=== PATIENT | male | born 1970 | race Caucasian/White ===

== ENCOUNTER → 2020-05-26 11:31 | Outpatient (CLI) | payer OTHER, SELFPAY ==
[2020-05-26 14:42] LABS: Influenza Control Positive
[2020-05-26 22:34] LABS: SARS-CoV-2 RNA PCR Negative
== END ==
PROVIDERS: PCP Family Medicine; Visit Provider Family Medicine
DX: Z20.822 Contact with and (suspected) exposure to COVID-19 (principal); R05 Cough
CPT/HCPCS: 87804; C9803; U0003; U0005

== ENCOUNTER 2021-08-03 10:23 | Emergency (ER) | payer OTHER, SELFPAY ==
[2021-08-03] VITALS (13 sets, daily range): BP systolic 126; BP diastolic 98; PULSE 74–90; RESP 8–21; TEMP 36.7; O2SAT 96–100
--- NOTE | ~2021-08-03 | CT_ITS ---
EXAMINATION: CTA chest PE protocol DATE: 08/03/2021 12:48 INDICATION: Shortness of breath. TECHNIQUE: Computed tomography angiography (CTA) of the chest was performed with 100 mL Omnipaque-350 intravenous contrast timed to evaluate the pulmonary arteries. Coronal maximum intensity projection 3D-reconstructions were created by the technologist. Automated exposure control and iterative reconst ruction technique were employed. The dose-length product was 1093.41 mGy-cm. COMPARISON: None. FINDINGS: There is no pneumonia or pleural effusion. The heart size is normal. No pericardial effusio n. There is no pulmonary embolus. There is mild thoracic spondylosis. IMPRESSION: 1. No pulmonary embolus. Reviewed, dictated and finalized at location B. IMPRESSION: 1. No pulmonary embolus.
--- NOTE | ~2021-08-03 | XR_ITS ---
EXAMINATION: XR chest 1V portable DATE: 08/03/2021 11:05 INDICATION: Shortness of breath. TECHNIQUE: A single frontal view of the chest was obtained. COMPARISON: Chest 2 views 07/01/2010 FINDINGS: The chest demonstrates clear lungs without pneumonia, pleural effusion, or pneumothorax. Th e heart size is normal. IMPRESSION: 1. No acute cardiopulmonary disease. Reviewed, dictated and finalized at location B.
--- NOTE | 2021-08-03 10:54 | ED.GENADULT ---
HPI - General Adult General Chief complaint: Shortness of Breath/Dyspnea Stated complaint: cough for 2 weeks Time Seen by Provider: 08/03/21 10:53 Related Data Home Medications Medication Instructions Recorded Confirmed ibuprofen 200 mg capsule 200 mg PO .prn PRN cap 12/29/19 12/29/19 escitalopram oxalate 20 mg PO DAILY 08/03/21 Allergies Allergy/AdvReac Type Severity Reaction Status Date / Time No Known Allergies Allergy Verified 08/03/21 10:50 [facility] Past Medical History Medical History (Updated 08/03/21 @ 12:54 by Reg Lomeli MD) Anxiety Depression Hypertension Surgical History Surgical History Fracture of mandible, jaw angle [id number] mandible 1989 Family History Family History Father Hypertension Family history of alcoholism Mother Family history of malignant neoplasm of breast Family history of thyroid disease Family history of malignant neoplasm of breast in first degree relative Hypertension Grandparent Family history of alcoholism Social History Social History Smoking status: Never smoker Second hand tobacco smoke exposure: No Alcohol intake: never Drinks per week: 0 Alcohol use details: beer Substance use: never Substance use type: does not use 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 Gender identity (if verbalized by the patient): Male Sexual Orientation (if Verbalized by the Patient): Straight or Heterosexual Spiritual care concerns: No Agree to blood products: Yes Course Vital Signs Vital signs: Vital Signs Temperature 36.7 C 08/03/21 10:45 Pulse Rate 77 08/03/21 10:45 Respiratory Rate 08/03/21 10:45 Blood Pressure 126/98 H 08/03/21 10:45 Pulse Oximetry 97 08/03/21 10:45 Temperature 36.7 C 08/03/21 10:45 Pulse Rate 77 08/03/21 10:45 Respiratory Rate 20 08/03/21 10:45 Blood Pressure 126/98 H 08/03/21 10:45 Pulse Oximetry 97 08/03/21 10:45 Medical Decision Making Vital Signs Vital Signs: Vital Signs Temperature 36.7 C 08/03/21 10:45 Pulse Rate 77 08/03/21 10:45 Respiratory Rate 20 08/03/21 10:45 Blood Pressure 126/98 H 08/03/21 10:45 Pulse Oximetry 97 08/03/21 10:45 Temperature 36.7 C 08/03/21 10:45 Pulse Rate 77 08/03/21 10:45 Respiratory Rate 20 08/03/21 10:45 Blood Pressure 126/98 H 08/03/21 10:45 Pulse Oximetry 97 08/03/21 10:45 Imaging Data My impression: Impressions Chest X-Ray 08/03/21 11:07 IMPRESSION: 1. No acute cardiopulmonary disease. Chest CTA 08/03/21 12:48 IMPRESSION: 1. No pulmonary embolus. Impressions Chest X-Ray 08/03/21 11:07 IMPRESSION: 1. No acute cardiopulmonary disease. Radiologist's impression: Impressions Chest X-Ray 08/03/21 11:07 IMPRESSION: 1. No acute cardiopulmonary disease. Discharge Plan Discharge Clinical Impression: Cough Reactive airway disease Qualifiers: Asthma severity: unspecified severity Asthma persistence: unspecified Asthma complication type: with acute exacerbation Qualified Code(s): J45.901 - Unspecified asthma with (acute) exacerbation Patient Disposition: Home, Self-Care Condition: Stable Instructions: Antibiotic Form, Reactive Airways Disease (ED), Acute Cough (ED) Additional Instructions: Return if symptoms are worsening , call your family physician for appointment, take Tylenol as as needed for aches and pain, continue home medications. Prescriptions: New prednisone 10 mg tablet 20 mg PO DAILY Qty: 10 RF: 0 benzonatate 200 mg capsule 200 mg PO BID PRN (Reason: cough) Qty: 20 RF: 0 levofloxacin 750 mg tablet 750 mg PO DAILY 7 Days Qty: 7 RF: 0 ipratropium bromide 42 mcg (0.06 %) spray,non-aerosol
--- NOTE | 2021-08-03 10:55 | ECG_ITS ---
Measurements Intervals [place] Rate: 76 P: 10 ID: 185 QRS: 5 QRSD: 89 T: 11 QT: 374 QTc: 422 Interpretive Statements SINUS RHYTHM DIFFUSE ST ELEVATION CONSIDER REPOLARIZATION ABNORMALITY, PERICARDITIS, OR MYOCARDIAL INJURY ABNORMAL ECG NO PREVIOUS ECG AVAILABLE FOR COMPARISON Electronically Signed On 08-03-2021 18:05:11 CDT by Rory Sawyer M.D.
[2021-08-03 11:17] LABS: Basophils Absolute Auto 0.1 K/mm3 (0.0-0.1); Basophils Percent Auto 0.7 % (0.2-1.2); Eosinophils Absolute Auto 0.2 K/mm3 (0-0.3); Eosinophils Percent Auto 3.3 % (0-4.4); Hematocrit 44.2 % (42.0-52.0); Hemoglobin 15.3 g/dL (14.0-18.0); Immature Granulocyte Absolute 0.03 K/mm3 (0.00-0.031); Immature Granulocyte Percent A 0.4 % (0-0.5); Lymphocytes Absolute Auto 1.22 K/mm3 (0.9-3.2); Lymphocytes Percent Auto 18.3 % (18.3-44.2); Mean Corpuscular HGB Conc 34.6 g/dl (32-36); Mean Corpuscular Hemoglobin 30.2 pg (26-34); Mean Corpuscular Volume 87.2 fl (80-100); Mean Platelet Volume 10.1 fl (7.4-10.4); Monocytes Absolute Auto 0.8 K/mm3 (0.1-0.6); Monocytes Percent Auto 12.1 % (2.6-8.5); Neutrophils Absolute Auto 4.3 K/mm3 (1.3-6.7); Neutrophils Percent Auto 65.2 % (45.5-73.1); Platelet Count Result 226 k/mm3 (150-375); Red Blood Count 5.07 M/mm3 (4.6-6.20); Red Cell Distribution Width 13.2 % (11.5-14.5); White Blood Count 6.7 K/mm3 (4.5-10.0)
[2021-08-03 11:27] LABS: Alanine Aminotransferase 28 U/L (4-50); Albumin Level 4.5 g/dL (3.5-5.1); Alkaline Phosphatase 62 U/L (38-126); Anion Gap 9 mmol/L (8-16); Aspartate Amino Transferase 33 U/L (17-59); Bilirubin,Total 0.4 mg/dL (0.2-1.3); Blood Urea Nitrogen 9 mg/dL (9-20); Calcium 8.4 mg/dL (8.4-10.2); Carbon Dioxide 24 mmol/L (22-30); Chloride 106 mmol/L (98-107); Estimated CRCL calculation 150 ml/min; Estimated Glomerular Filt Rate > 60; Glucose 107 mg/dL (65-110); Magnesium 2.2 mg/dL (1.6-2.3); Potassium 4.3 mmol/L (3.4-5.0); Sodium 139 mmol/L (137-145)
[2021-08-03 11:29] LABS: Partial Thromboplastin Time 30.2 SECONDS (22.3-36.8)
[2021-08-03 11:30] LABS: INR 1.1; Prothrombin Time 14.1 Seconds (11.1-14.7)
[2021-08-03 11:32] LABS: D Dimer 0.61 ug/mL (<0.48)
[2021-08-03 11:38] LABS: NT Pro B Type Natriuretic Pept 44 pg/mL (5-100); Troponin I < 0.012 ng/mL (0.000-0.034)
[2021-08-03 12:27] LABS: Influenza A QL RT-PCR Negative (Negative); Influenza B QL RT-PCR Negative (Negative); SARS-CoV-2 RNA PCR Negative
== END 2021-08-03 13:30 | disposition home or self-care (01) ==
PROVIDERS: Emergency Provider Emergency Medicine; PCP Hospitalist
DX: J45.901 Unspecified asthma with (acute) exacerbation (principal); R05.9 Cough, unspecified; Z20.822 Contact with and (suspected) exposure to COVID-19; I10 Essential (primary) hypertension; F41.9 Anxiety disorder, unspecified; F32.A Depression, unspecified; R94.31 Abnormal electrocardiogram [ECG] [EKG]
CPT/HCPCS: 36415; 71045; 71275; 80053; 83735; 83880; 84484; 85025; 85380; 85610; 85730; 87502; 93005; 99284; C9803; Q9967; U0003; U0005

== ENCOUNTER 2021-11-23 17:08 | Emergency (ER) | payer OTHER, SELFPAY ==
--- NOTE | 2021-11-23 17:10 | ED.NECK ---
HPI - Neck Pain/Injury General Chief Complaint: Neck Pain/Injury Stated Complaint: neck pain Time Seen by Provider: 11/23/21 17:10 Source: patient Mode of arrival: ambulatory Limitations: no limitations History of Present Illness HPI Narrative: Mr. Curz is a 51 year old male patient presenting to the clinic today with c/o right sided neck pain/shoulder pain x8?9 days. He reports he thinks he slept on his neck wrong. Has seen the chiropractor for adjustments but has not had much relief. Reports some numbness and tingling to the right upper arm and to the right thumb. Denies any known neck injury. Related Data Home Medications Medication Instructions Recorded Confirmed bupropion HCl (smoking deter) 150 150 mg PO BID 11/23/21 11/23/21 mg tablet,12 hr sustained-release(smoking deterrent) Allergies Allergy/AdvReac Type Severity Reaction Status Date / Time No Known Allergies Allergy Verified 11/23/21 17:25 Review of Systems Review of Systems: Pertinent positives per HPI. Patient denies any fever, chills, rash, headache, visual changes, dizziness, cough, runny nose, sore throat, shortness of breath, chest pain, palpitations, nausea, vomiting, diarrhea, constipation, abdominal pain, or any urinary issues. [facility] Past Medical History Medical History Anxiety Depression Hypertension Surgical History Surgical History Fracture of mandible, jaw angle [id number] mandible 1989 Family History Family History Father Hypertension Family history of alcoholism Mother Family history of malignant neoplasm of breast Family history of thyroid disease Family history of malignant neoplasm of breast in first degree relative Hypertension Grandparent Family history of alcoholism Social History Social History Smoking status: Never smoker Second hand tobacco smoke exposure: No Alcohol intake: never Drinks per week: 0 Alcohol use details: beer Substance use: never Substance use type: does not use 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 There is no relevant family history pertinent to the patient complaint. Exam Narrative: General: Well-developed, obese, in no apparent distress Head: Normocephalic, atraumatic. Cardio: Regular rate and rhythm, s1 and s2 normal, no murmur appreciated. Resp: Clear to auscultation bilaterally, no rhonchi, rales, wheezing or rubs. Musculoskeletal: No deformity, tender to palpation over the base of the posterior neck and cervical portion of the trapezius musculature, pain with rotation against resistance to the right side as well as flexion of the neck, grossly normal range of motion, reports numbness to the anterior right upper arm and over the right thumb, muscle strength strong and equal, peripheral pulse strong, no edema, no cyanosis, normal gait and station Course Course Emergency Course: Portions of this record may have been created with voice recognition software. Level of Care: Express Care Visit Vital Signs Vital signs: Vital signs reviewed MDM - Neck Pain/Injury MDM Narrative Medical decision making narrative: At the time of visit patient is resting comfortably on the exam table. I suspect the patient has a strained cervical trapezius muscle to the right side as well as some radicular pain from swelling/inflammation of this muscle pushing on the nerve. I wi
[2021-11-23 17:17] VITALS: BP 133/88; PULSE 88; RESP 18; TEMP 36.3; O2SAT 99
== END 2021-11-23 17:33 | disposition home or self-care (01) ==
PROVIDERS: Emergency Provider Nurse Practitioner Family; PCP Hospitalist
DX: S16.1XXA Strain of muscle, fascia and tendon at neck level, initial encounter (principal); X58.XXXA Exposure to other specified factors, initial encounter; F41.9 Anxiety disorder, unspecified; F32.A Depression, unspecified; I10 Essential (primary) hypertension
CPT/HCPCS: 99213; G0463

== ENCOUNTER 2024-05-21 16:00 | Emergency (ER) | payer OTHER, SELFPAY ==
--- OUTSIDE RECORDS SUMMARY | 2024-05-21 16:11 | XMS_ITS | Clinical Summary ---
Author Organization [facility] Address [address] Attn: Epic Prelude ADT [place] [address] Care Team Providers Care Hereditary Cancer Program Coordinator Name Role Phone Unavailable Primary Care Provider Unavailabl e Medications buPROPion HCL (WELLBUTRIN XL) 150 mg Extended Release 24 hour tablet Take 1 Tablet (150 mg) by mouth 2 times daily. 180 Tablet 10/26/2021 3:40 PM CDT 2 Active LORazepam (ATIVAN) 0.5 mg tablet Take 1 Tablet (0.5 mg) by mouth 1 time daily as needed for anxiety. 30 Tablet 10/29/2021 1:17 PM CDT 2 Active tirzepatide (Mounjaro) 7.5 mg/0.5 mL Pen Injector Inject 0.5 mL (7.5 mg) by subcutaneous injection every 7 days. 2 mL 5 Active Encounters Date Type Department Care Team Description 04/29/2024 External Device Data [facility] ABSTRACTION Provider, Abstract from Last 3 Months Social History Tobacco Use Types Packs/Day Years Used Date Smoking Tobacco: Never Assessed Sex and Gender Information Value Date Recorded Sex Assigned at Not on file Legal Sex Male 3:27 PM CDT Gender Identity Not on file Sexual Orientation Not on file Plan of Treatment Health Maintenance Due Date Last Done Comments DTAP/TDAP/TD VACCINES (1 - Tdap) 1991 HEPATITIS B VACCINES (1 of 3 - 19+ 3-dose series) 1991 COLORECTAL SCREENING 2017 Colorectal Cancer Screening 2017 FIT-DNA Q 3 years 2017 FIT/FOBT Q 1 year 2017 Flex Sig/CT Colonography Q 5 years 2017 ZOSTER VACCINE (1 of 2) 2022 INFLUENZA VACCINE (#1) 2023 PNEUMOCOCCAL VACCINE 0-64 YEARS Aged Out No longer eligible based on patient's age to complete this topic Insurance RX [employer]
--- OUTSIDE RECORDS SUMMARY | 2024-05-21 16:11 | XMS_ITS | Clinical Summary ---
Author Organization [facility] Address [address] [place] [address] Care Team Providers Care Stockroom Inventory Clerk Name Role Phone Serene Ward MD, Dilan Edwards Primary Care Provider Source Comments [facility],non-owned Affiliates and Associated Physician Practices is amultiple site organization consisting of ambulatory clinics and hospital sitesin [place], [place], [place] and [place]. This disclosure is being madepursuant to the Care Everywhere program and may not contain all information available regarding this patient. Last updated 18.[facility] Allergies No known active allergies Medications * Be aware that medications may not be up to date on this document. Alwaysverify current medications with the patient. Medication Sig Dispensed Refills Start Date End Date Status buPROPion XL 24hr (Wellbutrin-XL) 300 MG tablet Take 1 (one) tablet by mouth every morning 02/21/2023 Active ibuprofen (Motrin) 200 MG tablet Take by mouth every 6 hours as needed Active diclofenac sodium (Voltaren) 1 % gel Apply to affected area 4 times daily Active celecoxib (CeleBREX) 200 MG capsuleIndications:Mirtha calderón osteoarthritis of both knees Take 1 (one) capsule by mouth 2 times daily 60 capsule 5 05/15/2023 Active Active Problems Problem Noted Date Diagnosed Date Primary osteoarthritis of both knees 05/16/2023 Social History Tobacco Use Types Packs/Day Years Used Date Smoking Tobacco: Never Smokeless Tobacco: Never Tobacco Cessation:Counseling Given: Not Answered PHQ-2 Answer Date Recorded Patient Health Questionnaire-2 Score 0 05/15/2023 Sex and Gender Information Value Date Recorded Sex Assigned at Not on file Gender Identity Not on file Sexual Orientation Not on file Last Filed Vital Signs Vital Sign Reading Time Taken Comments Blood Pressure - - Pulse - - Temperature - - Respiratory Rate - - Oxygen Saturation - - Inhaled Oxygen Concentration - - Weight 156.5 kg (345 lb) 05/15/2023 1:30 PM ONION TIER Height 182.9 cm (6') 05/15/2023 1:30 PM ONION TIER Body Mass Index 46.79 05/15/2023 1:30 PM ONION TIER Plan of Treatment Health Maintenance Due Date Last Done Comments COLOGUARD (AGES 45-75) - COL ON CA SCREENING 1972 COLON MONITORING 1972 COLONOSCOPY - COLON CA SCREENING 1972 CT COLONOGRAPHY - COLON CA SCREENING 1972 Colorectal Cancer Screening 1972 FIT - COLON CA SCREENING 1972 FLEX SIG - COLON CA SCREENING 1972 LIPID TESTING 1972 MAMMOGRAM 1972 PAP SMEAR 1972 HIV SCREENING 1987 HEPATITIS C SCREENING 02/25/1990 DTAP/TDAP/TD VACCINES (1 - Tdap) 1991 HEPATITIS B VACCINE (1 of 3 - 19+ 3-dose series) 1991 PNEUMOCOCCAL VACCINE 50+ (1 of 1 - PCV) 2022 ZOSTER VACCINE (1 of 2) 2022 SCREENING FOR DIABETES 05/15/2023 COVID-19 VACCINE (1 - 2023-2 5 season) 2023 INFLUENZA VACCINE (#1) 2023 3, 02/09/2022, 01/19/2021 DEPRESSION SCREENING 04/16/2024 05/15/2023 HIB VACCINE Aged Out No longer eligi ble based on patient's age to complete this topic HPV VACCINE Aged Out No longer eligi ble based on patient's age to complete this topic MENINGOCOCCAL (Group B) VACCINE Aged Out No longer eligible b ased on patient's age to complete this topic MENINGOCOCCAL VACCINE Aged Out No orin purvi eligible based on patient's age to complete this topic PNEUMOCOCCAL VACCINE Aged Out No long er eligible based on patient's age to complete this topic Care Teams Stockroom Inventory Clerk Relationship Specialty Start Date End Date Dilan Cast Jr., MD [address] [place] [id number] PCP - General Internal Medicine 05/15/23
--- OUTSIDE RECORDS SUMMARY | 2024-05-21 16:11 | XMS_ITS | Encounter Summary ---
Author Organization [facility] Address [address] [place] [address] Care Team Providers Care Predatory Animal Exterminator Name Role Phone Serene Ward MD, Dilan Edwards Primary Care Provider Encounter Details Date Type Department Care Team (Late st Contact Info) Description 02/20/2020 Lab Requisition [facility] Derm[facility] Lab [address] [place] [id number] Sabas Rogers MD [address] [place] [address] Social History Tobacco Use Types Packs/Day Years Used Date Smoking Tobacco: Never Assessed Sex and Gender Information Value Date Recorded Sex Assigned at Not on file Gender Identity Not on file Sexual Orientation Not on file documented as of this encounter Plan of Treatment Not on file documented as of this encounter Procedures Procedure Name Priority Date/Time Associated Diagnosis Comments DERMATOPATHOLOGY Routine 02/19/2020 12:0 0 AM FIRE SPRINKLER FITTER documented in this encounter Results * DERMATOPATHOLOGY (02/19/2020 12:00 AM FIRE SPRINKLER FITTER) Case Report Dermatopathology Report Case: [id number] Authorizing Provider: Sabas Rogers MD Collected: 02/19/2020 12:00 AM Ordering Location: [facility] Lab Received: 02/20/2020 06:34 AM Pathologist: Kathya Lakhani MD Specimen: Skin, right post thigh 0 12:33 PM [facility] [facility] DERMATOPATHOLOGY LABORATORY Final Diagnosis Specimen A. SKIN, right post thigh: NEVUS LIPOMATOSUS SUPERFICIALIS (D17.30) 0 12:33 PM [facility] [facility] DERMATOPATHOLOGY LABORATORY Clinical History Nevus vs tag. Path # [id number]. 0 12:33 PM [facility] DERMATOPATHOLOGY [facility]ORATORY Gross Description Specimen A: Received is one formalin filled container labeled with the patient's name and designated right post thigh. The specimen consists of a shave biopsy (2 pieces) measuring [id number], bisected, & [id number]. Jar 0. 0 12:33 PM [facility] DERMATOPATHOLOGY LABORATORY Microscopic Description Specimen A. SKIN, right post thigh: There is a gently folded epidermis surrounding a connective tissue core in which fat and collagen are intermingled. 0 12:33 PM [facility] DERMATOPATHOLOGY LABORATORY Disclaimer An external and internal positive and negative controls are appropriate for the histochemical, immunohistochemical and immunofluorescence stain(s) in this case (if any), except where stated explicitly. The performance characteristics of the stain(s) cited in this report were developed and its performance characteristic determined by the Dermatopathology Laboratory at [facility], directed by Dr. Sariah Wise. These tests need not be, and therefore are not, approved by the [place] Food and Drug Administration. The tests are used for clinical purposes. Billing Codes Specimen Charges Stain Charges 50980 1 0 12:33 PM [facility] DERMATOPATHOLOGY LABORATORY Embedded Images 0 12:33 PM [facility] DERMATOPATHOLOGY LABORATORY Pathology/Cytolog y TISSUE SPECIMEN FROM SKIN / Unknown 02/19/2020 02/20/2020 6:34 AM FIRE SPRINKLER FITTER Sabas Rogers MD LAB - PATHOLOGY/CYTO LOGY ORDERABLES DERMATOPATHOLOGY LABORATORY [facility] - Department of Dermatology [facility] Medicine [address] [place] [address], [address] [phone] documented in this encounter Visit Diagnoses Not on filedocumented in this encounter Care Teams Predatory Animal Exterminator Relationship Specialty Start Date End Date Dilan Cast Jr., MD [address] [place] [id number] PCP - General Internal Medicine 05/15/23 documented as of this encounter
--- OUTSIDE RECORDS SUMMARY | 2024-05-21 16:11 | XMS_ITS | Clinical Summary ---
Author Organization [facility] [address] [place] [address] Care Team Providers Care Certified Registered Dental Assistant Name Role Phone Serene Ward MD, Dilan Swift Primary Care Provide r Allergies No known active allergies Medications diclofenac sodium (VOLTAREN) 1 % gel Apply topically 4 (four) times a day Active celecoxib (CeleBREX) 100 mg capsuleIndication s:Primary osteoarthritis involving multiple joints Take 1 capsule (100 mg total) by mouth 2 (two) times a day 180 capsule 3 08/30/19 24 2024 Active buPROPion XL (WELLBUTRIN XL) 300 mg 24 hr tabletIndications :Generalized anxiety disorder TAKE 1 TABLET EVERY MORNING 90 tablet 3 02/19/20 24 Active atorvastatin (LIPITOR) 40 mg tabletIndications :Type 2 diabetes mellitus with hyperglycemia, without long-term current use of insulin (HCC) Take 1 tablet (40 mg total) by mouth daily 90 tablet 4 03/05/20 24 2024 Active olmesartan (BENICAR) 5 mg tabletIndications :Type 2 diabetes mellitus with hyperglycemia, without long-term current use of insulin (HCC) Take 1 tablet (5 mg total) by mouth daily 90 tablet 3 03/05/20 24 2024 Active Freestyle InsuLinx stripIndications: Type 2 diabetes mellitus with hyperglycemia, without long-term current use of insulin (HCC) Test daily before all meals/snacks and once before bedtime. 3 each 03/05/20 24 Active lancets (freestyle) 28 gauge miscIndications:T ype 2 diabetes mellitus with hyperglycemia, without long-term current use of insulin (HCC) Test daily before all meals/snacks and once before bedtime. 3 each 03/05/20 24 Active blood-glucose meter (Freestyle InsuLinx) miscIndications:T ype 2 diabetes mellitus with hyperglycemia, without long-term current use of insulin (HCC) Test daily before all meals/snacks and once before bedtime. 1 each 03/05/20 24 Active tirzepatide (Mounjaro) 7.5 mg/0.5 mL pen injectorIndicatio ns:Type 2 diabetes mellitus with hyperglycemia, without long-term current use of insulin (HCC) Inject 7.5 mg under the skin every 7 days 2 mL 04/24/19 25 Active tirzepatide (Mounjaro) 5 mg/0.5 mL pen injectorIndicatio ns:Type 2 diabetes mellitus with hyperglycemia, without long-term current use of insulin (HCC) Inject 5 mg under the skin every 7 days 2 mL 03/05/20 24 2024 Discontinued tirzepatide (Mounjaro) 7.5 mg/0.5 mL pen injectorIndicatio ns:Type 2 diabetes mellitus with hyperglycemia, without long-term current use of insulin (HCC) Inject 7.5 mg under the skin every 7 days 2 mL 04/24/19 25 2024 Discontinued(R sarah) Active Problems Problem Noted Date Diagnosed Date Type 2 diabetes mellitus wit h hyperglycemia, without long-term current use of insulin 03/05/2024 Assessment & Plan (03/05/2024 8:57 AM CAR CUSTOMIZER): New dx, will start mounjaro with weight and hgba1c Will start statin and benicar Will get urine test at next visit Preventative health care 02/09/2022 Assessment & Plan (03/05/2024 8:51 AM CAR CUSTOMIZER): Reviewed labs, screenings and vaccines Assessment & Plan (02/21/2023 8:44 AM CAR CUSTOMIZER): Reviewed labs, screenings and vaccines Assessment & Plan (02/09/2022 3:29 PM CDT): Well get labs Up to date on vaccines Will get colonoscopy this year Lymphadenopathy 12/06/2020 Assessment & Plan (12/06/2020 3:32 PM CDT): Suspect from TDAP vaccine Should resolve in the next week Will let us know if it does not improve Generalized anxiety disorder 11/18/2020 Assessment & Plan (03/05/2024 8:44 AM CAR CUSTOMIZER): Chronic stable Well controlled Continue current prescribed medications wellbutrin at current dose Assessment & Plan (02/21/2023 8:43 AM CAR CUSTOMIZER): Chronic stable Well controlled Continue current prescribed medications at current dose Assessment & Plan (08/09/2022 10:22 AM CDT): Chronic stable Well controlled Continue current prescribed medications at current dose Assessment & Plan (02/09/2022 3:28 PM CDT): Continue medications as prescribed. Assessment & Plan (12/05/2020 5:10 PM CDT): For now , cont lexapro but if symptoms worsen with lack of interest, etc, would switch to alternative Assessment & Plan (11/18/2020 10:29 AM CDT): Trial of lexapro and strongly recommend counseling Noom eamon suggested as well Class 3 severe obesity due t o excess calories without serious comorbidity with body mass index (BMI) of 45.0 to 49.9 in adult 11/18/2020 Assessment & Plan (03/05/2024 8:55 AM CAR CUSTOMIZER): Monitor weight, trying to start mounjaro for dm2 Assessment & Plan (08/30/2023 1:52 PM CDT): Monitor weight Assessment & Plan (02/21/2023 8:43 AM CAR CUSTOMIZER): Has lost weight via diet changes Assessment & Plan (08/09/2022 10:21 AM CDT): Monitor weight Assessment & Plan (02/09/2022 3:28 PM CDT): Monitor weight Assessment & Plan (11/18/2020 10:29 AM CDT): 315 is lowest weight hes been in the last few years Discussed welennyvy- something to consider Major depressive disorder Overview (09/16/2021): On lexapro and refractory symptoms, lexapro dc/d 08/2021 and swtiched to wellbutrin Assessment & Plan (08/09/2022 10:22 AM CDT): Chronic stable Well controlled Continue current prescribed medications at current dose Assessment & Plan (12/08/2021 2:32 PM CDT): Doing stable on wellbutrin- changing to 300 mg XL daily Cont with consistent every 2-3 weeks therapy Hold off on psych referral for now Assessment & Plan (09/16/2021 1:56 PM CDT): Cont wellbutrin at 150 mg bid Advise he see psych as he wishes to start ssri with wellbutrin, dt concerns for qtc prolongation and serotonin sydrome with this combo as well as our inability to get control of his symptoms, I highly advise he discuss this combo with a psychiatrist. Contc raj. Assessment & Plan (07/13/2021 1:50 PM CDT): Getting cousneling, 5 sessions So far Cont with counseling Cont with lexapro at 20 mg/da rtc in about 2 months after he has restarted work Assessment & Plan (05/24/2021 1:50 PM CAR CUSTOMIZER): More the issue now, very work related Advise he start with counseling For now would cont lexapro Reasonable ot add on wellbutrin as he suggested if no improvement with counseling Assessment & Plan (01/19/2021 9:09 AM CDT): Improved, but room for improvement per pt- will inc lexapro to 20 mg/da Discussed he is to message if symptoms/side effects worsen or develop rtc 4 mo Assessment & Plan (11/18/2020 10:30 AM CDT): No si/hi Trial of lexapro- he is to notify me at 2 weeks if side effects are minimal, consider inc to 20 mg at that time ED (erectile dysfunction) Assessment & Plan (12/05/2020 5:10 PM CDT): Cont viagra Assessment & Plan (11/18/2020 10:31 AM CDT): Likely mf with depression, anxiety, weight, possibly underlying low t and/or low thyroid. Discussed lexapro could potentially worsen this Discussed viagra and side effects Lower extremity edema Assessment & Plan (11/18/2020 10:35 AM CDT): 2+ pitting No crackles lungs Consider echo if develops sig quesada/orthopnea Resolved Problems Problem Noted Date Diagnosed Date Resolved Date Elevated hemoglobin A1c 12/05/2020 11/2 Assessment & Plan (05/24/2021 1:51 PM CAR CUSTOMIZER): Declines meds again, will work on diet and exercise, weight is down, hopefully ha1c will dec at next f/u He is agreeable to treatment if it worsens Assessment & Plan (01/19/2021 9:11 AM CDT): ha1c dropped 6.6 > 6.1! Neuropathy exam normal today Eye exam soon Discussed glp-1 agonists- something to consider if he wants further assistance with weight loss Cont with diet , advise adding in exercise if possible 6-7 lbs of weight loss since 11/15/2020 just from cutting back on soda! Assessment & Plan (12/05/2020 5:13 PM CDT): New dx Discussed my recommendation to start metformin and/or glp-1 He Is to consider, will work on diet and exercise for now and rtc 3 mo Needs eye appt tamir Will get ha1c and microalbumin prior to next appt Lipids great control 11/2020 HTN (hypertension) 11/18/2020 3 Assessment & Plan (01/19/2021 9:05 AM CDT): Looking great today! Assessment & Plan (12/05/2020 5:09 PM CDT): Cont low salt diet Assessment & Plan (11/18/2020 10:28 AM CDT): Not taking losartan , bp looks great today Advise staying off- 4 bp numbers at different times over the next week, record and send to me at his 2 week message to me Encounters Date Type Department Care Team Description 03/05/2024 8:30 AM CAR CUSTOMIZER Office Visit [facility] [address] [place] [phone] Dilan Cast Jr., MD Preventative health care (Primary Dx); Need for vaccination; Type 2 diabetes mellitus with hyperglycemia, without long-term current use of insulin (HCC); Class 3 severe obesity due to excess calories without serious comorbidity with body mass index (BMI) of 45.0 to 49.9 in adult (HCC); Encounter for screening colonoscopy; Generalized anxiety disorder 03/05/2024 Telephone [facility] [address] [place] [phone] Dilan Cast Jr., MD Prescription Error 03/03/2024 9:33 AM CAR CUSTOMIZER - 03/03/2024 11:59 PM CAR CUSTOMIZER Hospital Encounter [facility] [address] [place] [address] Dilan Laureano MD Chronic left hip pain Discharge Disposition: Discharge to home or self care 02/27/2024 Orders Only 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 from Last 3 Months Immunizations Name Administration Dates Next Due Influenza, Quadrivalent, Spl it, Preservative Free, Intramuscular 02/21/2023,02/09/2022,01/19/2021 Influenza, Trivalent, Preser vative Free, Intramuscular 03/05/2024 Td, Unspecified 11/18/2020(Deferred: Patient Ref used) Tdap 12/02/2020 Surgical History Surgery Date Site/Laterality Comments MANDIBLE FRACTURE SURGERY 10/15/1989 COSMETIC SURGERY maxillofacial , cons idered cosmetic, lower jaw, [place] FLUORO GUIDED INJECTION HIP LEFT 03/03/2024 Left Medical History Medical History Date Comments Anemia Depression Back pain Knee pain, left GERD (gastroesophageal reflux disease) off and o n for a few years Anxiety Hypertension borderline, 2000 Family History Medical History Relation Name Comments Alcohol abuse Father Odilon Cruz Hypertension Father Odilon Cruz Alcohol abuse Maternal Grandmother Reanna Carey Arthritis Maternal Grandmother Reanna Carey Cancer Mother Lila Cruz Cancer Mother's Brother Dilan Aurelio Miscarriages / Stillbirths Sister Kathya Ann arrington Relation Name Status Comments Father Odilon Cruz Alive Maternal Grandmother Reanna Carey Mother Lila Cruz Alive Mother's Brother Dilan Aurelio Sister Kathya Lopez Social History Tobacco Use Types Packs/Day Years Used Date Smoking Tobacco: Never Smokeless Tobacco: Never Tobacco Cessation:Counseling Given: Not Answered AUDIT-C Answer Date Recorded Frequency of Alcohol Consumption Not on file 08/30/2023 Q2: How many drinks containi ng alcohol do you have on a typical day when you are drinking? Patient does not drink Frequency of Binge Drinking Not on file 08/14 PHQ-2 Answer Date Recorded PHQ-2 Total Score (If total score is 3 or more points, staff should administer the PHQ-9) 1 03/05/2024 Sex and Gender Information Value Date Recorded Sex Assigned at Not on file Legal Sex Male 4:26 PM CDT Gender Identity Male 11/15/2020 2:32 PM CDT Sexual Orientation Straight 11/15/2020 2: 32 PM CDT Obstetrics History Last Filed Vital Signs Vital Sign Reading Time Taken Comments Blood Pressure 122/74 03/05/2024 8:28 AM CAR CUSTOMIZER Pulse 83 03/05/2024 8:28 AM CAR CUSTOMIZER Temperature 36.6 C (97.9 F) 03/05/2024 8:28 AM CAR CUSTOMIZER Respiratory Rate 18 03/05/2024 8:28 AM CAR CUSTOMIZER Oxygen Saturation 97% 03/05/2024 8:28 AM CAR CUSTOMIZER Inhaled Oxygen Concentration - - Weight 161.5 kg (356 lb) 03/05/2024 8:28 AM CAR CUSTOMIZER Height 182.9 cm (6') 03/05/2024 8:28 AM CAR CUSTOMIZER Body Mass Index 48.28 03/05/2024 8:28 AM CAR CUSTOMIZER Plan of Treatment Health Maintenance Due Date Last Done Comments Albumin Creatinine Ratio, Urine 1972 Colon Cancer Screening-Colonoscopy 1972 Hepatitis C Screening 1972 Pneumococcal vaccine <65 (1 of 2 - PCV) 1978 Hepatitis B Screening 1990 Dilated Eye Exam 01/24/2022 01/24/2021, 01/24/2021 Zoster Vaccine (1 of 2) 2022 Covid-19 Vaccine (3 - 2023-2 5 season) 2023 06/07/2020, 05/17/2020 Hemoglobin A1C 09/01/2024 03/04/2024, 07/2022, 05/17/2022, Additional history exists Lipid Panel 03/04/2025 03/04/2024, 04/2022, 11/18/2020 eGFR 03/04/2025 03/04/2024, 07/2022, 05/17/2022, Additional history exists Depression Screening 03/05/2025 03/05/2024, 08/30/2023, 02/21/2023, Additional history exists Regular Well Visit/Exam 18-64 03/05/2025, 02/21/2023, 02/09/2022, Additional history exists Prostate Cancer Screening-PSA 03/04/2026 03/04/2024, 02/17/2023 DTaP/Tdap/Td Vaccine (2 - Td or Tdap) 12/02/2030 12/02/2020 Influenza Vaccine Completed 03/05/2024, , 02/09/2022, Additional history exists Foot Exam Discontinued Procedures Procedure Name Priority Date/Time Associated Diagnosis Comments HEMOGLOBIN A1C Routine 03/04/2024 9:01 AM CAR CUSTOMIZER Class 3 severe obesity due to excess calories without serious comorbidity with body mass index (BMI) of 45.0 to 49.9 in adult (HCC) Elevated hemoglobin A1c Preventative health care PSA SCREEN Routine 03/04/2024 9:01 AM CAR CUSTOMIZER Class 3 severe obesity due to excess calories without serious comorbidity with body mass index (BMI) of 45.0 to 49.9 in adult (HCC) Elevated hemoglobin A1c Preventative health care LIPID PANEL Routine 03/04/2024 9:01 AM CAR CUSTOMIZER Class 3 severe obesity due to excess calories without serious comorbidity with body mass index (BMI) of 45.0 to 49.9 in adult (HCC) Elevated hemoglobin A1c Preventative health care CBC WITH AUTO DIFFERENTIAL Routine 03/04/2024 9:01 AM CAR CUSTOMIZER Class 3 severe obesity due to excess calories without serious comorbidity with body mass index (BMI) of 45.0 to 49.9 in adult (HCC) Elevated hemoglobin A1c Preventative health care COMPREHENSIVE METABOLIC PANEL Routine 03/04/2024 9:01 AM CAR CUSTOMIZER Class 3 severe obesity due to excess calories without serious comorbidity with body mass index (BMI) of 45.0 to 49.9 in adult (HCC) Elevated hemoglobin A1c Preventative health care FL FLUORO GUIDED INJECTION HIP LEFT Schedule Routine, Read Routine (OP Routine) 03/03/2024 10:43 AM CAR CUSTOMIZER Chronic left hip pain HM DIABETES EYE EXAM Routine 01/24/2021 from Last 3 Months or Most Recently Relevant to Health Maintenance Results * PSA screen (03/04/2024 9:01 AM CAR CUSTOMIZER) PSA 0.67 < OR = 4.00 ng/mL [facility] Comment: The total PSA value from this assay system is standardized against the WHO standard. The test result will be approximately 20% lower when compared to the equimolar-standardized total PSA ([place]). Comparison of serial PSA results should be interpreted with this fact in mind. This test was performed using the Siemens chemiluminescent method. Values obtained from different assay methods cannot be used interchangeably. PSA levels, regardless of value, should not be interpreted as absolute evidence of the presence or absence of disease. Blood 03/04/2024 9:01 AM CAR CUSTOMIZER 03/04/2024 9:02 AM CAR CUSTOMIZER Narrative [facility] - 03/05/2024 2:51 AM CAR CUSTOMIZER FASTING:YES FASTING: YES Dilan Cast Jr., MD LAB BLOOD ORDERABLES Final Result [facility] [address] [place] [address] * (ABNORMAL) CBC with auto differential (03/04/2024 9:01 AM CAR CUSTOMIZER) Pathologist [facility] WBC 15.3(H) 3.8 - 10.8 Thousand/ uL [facility] RBC, POC 5.40 4.20 - 5.80 Million/u L [facility] Hgb 16.1 13.2 - 17.1 g/dL [facility] Hct 48.8 38.5 - 50.0 % [facility] MCV 90.4 80.0 - 100.0 fL [facility] MCH 29.8 27.0 - 33.0 pg [facility] MCHC 33.0 32.0 - 36.0 g/dL [facility] Comment: For adults, a slight decrease in the calculated MCHC value (in the range of 30 to 32 g/dL) is most likely not clinically significant; however, it should be interpreted with caution in correlation with other red cell parameters and the patient's clinical condition. Rdw 13.1 11.0 - 15.0 % [facility] Platelets 280 140 - 400 Thousand/ uL [facility] MPV 11.1 7.5 - 12.5 fL [facility] Neutrophils, abs 12,776(H) 1,500 - 7,800 cells/uL [facility] Lymphocytes, abs 1,729 850 - 3,900 cells/uL [facility] Monocyte abs 780 200 - 950 cells/uL [facility] Eosinophils, abs 0(L) 15 - 500 cells/uL [facility] Basophils, abs 15 0 - 200 cells/uL [facility] Neutrophils 83.5 % [facility] Lymphocyte pct 11.3 % [facility] Monocytes 5.1 % [facility] Eosinophils 0.0 % [facility] Basophils 0.1 % [facility] Blood 03/04/2024 9:01 AM CAR CUSTOMIZER 03/04/2024 9:02 AM CAR CUSTOMIZER Narrative [facility] - 03/05/2024 2:51 AM CAR CUSTOMIZER FASTING:YES FASTING: YES Dilan Cast Jr., MD LAB BLOOD ORDERABLES Final Result [facility] [address] [place] [address] * (ABNORMAL) Hemoglobin A1c (03/04/2024 9:01 AM CAR CUSTOMIZER) Hgb A1C 6.6(H) <5.7 % of total Hgb [facility] Comment: For someone without known diabetes, a hemoglobin A1c value of 6.5% or greater indicates that they may have diabetes and this should be confirmed with a follow-up test. For someone with known diabetes, a value <7% indicates that their diabetes is well controlled and a value greater than or equal to 7% indicates suboptimal control. A1c targets should be individualized based on duration of diabetes, age, comorbid conditions, and other considerations. Currently, no consensus exists regarding use of hemoglobin A1c for diagnosis of diabetes for children. Blood 03/04/2024 9:01 AM CAR CUSTOMIZER 03/04/2024 9:02 AM CAR CUSTOMIZER Narrative [facility] - 03/05/2024 2:51 AM CAR CUSTOMIZER FASTING:YES FASTING: YES Dilan Cast Jr., MD LAB BLOOD ORDERABLES Final Result [facility] [address] [place] [address] * Lipid panel (03/04/2024 9:01 AM CAR CUSTOMIZER) Pathologist [facility] Cholesterol 156 <200 mg/dL [facility] HDL 44 > OR = 40 mg/dL [facility] Triglycerides 89 <150 mg/dL [facility] LDL 94 mg/dL (calc) [facility] Comment: Reference range: <100 Desirable range <100 mg/dL for primary prevention; <70 mg/dL for patients with CHD or diabetic patients with > or = 2 CHD risk factors. LDL-C is now calculated using the Chalo-Owusu calculation, which is a validated novel method providing better accuracy than the Friedewald equation in the estimation of LDL-C. Chalo SS et al. TITUS. 2013;310(19): 0321-2044 (http://education.CoPatient.olook/faq/CPH882) Chol/HDL ratio 3.5 <5.0 (calc) [facility] Non-HDL, (LDL+VLDL) 112 <130 mg/dL (calc) [facility] Comment: For patients with diabetes plus 1 major ASCVD risk factor, treating to a non-HDL-C goal of <100 mg/dL (LDL-C of <70 mg/dL) is considered a therapeutic option. Blood 03/04/2024 9:01 AM CAR CUSTOMIZER 03/04/2024 9:02 AM CAR CUSTOMIZER Narrative [facility] - 03/05/2024 2:51 AM CAR CUSTOMIZER FASTING:YES FASTING: YES Dilan Cast Jr., MD LAB BLOOD ORDERABLES Final Result [facility] [address] [place] [phone] * (ABNORMAL) Comprehensive metabolic panel (03/04/2024 9:01 AM CAR CUSTOMIZER) Glucose 134(H) 65 - 99 mg/dL [facility] Comment: Fasting reference interval For someone without known diabetes, a glucose value >125 mg/dL indicates that they may have diabetes and this should be confirmed with a follow-up test. BUN 11 7 - 25 mg/dL [facility] Creatinine 0.97 0.70 - 1.30 mg/dL [facility] eGFR 94 > OR = 60 mL/min/1.7 3m2 [facility] BUN/creat ratio SEE NOTE: 6 - 22 (calc) [facility] Comment: Not Reported: BUN and Creatinine are within reference range. Sodium 135 135 - 146 mmol/L [facility] Potassium, pl 4.3 3.5 - 5.3 mmol/L [facility] Chloride 105 98 - 110 mmol/L [facility] CO2 21 20 - 32 mmol/L [facility] Calcium 9.3 8.6 - 10.3 mg/dL [facility] Protein, sr 7.8 6.1 - 8.1 g/dL [facility] Albumin 4.5 3.6 - 5.1 g/dL [facility] GLOBULIN 3.3 1.9 - 3.7 g/dL (calc) [facility] Alb/glob ratio 1.4 1.0 - 2.5 (calc) [facility] Bilirubin, total 0.5 0.2 - 1.2 mg/dL [facility] Alk phos 49 35 - 144 U/L [facility] AST 14 10 - 35 U/L [facility] ALT (SGPT) 20 9 - 46 U/L [facility] Blood 03/04/2024 9:01 AM CAR CUSTOMIZER 03/04/2024 9:02 AM CAR CUSTOMIZER Narrative [facility] - 03/05/2024 2:51 AM CAR CUSTOMIZER FASTING:YES FASTING: YES Dilan Cast Jr., MD LAB BLOOD ORDERABLES Final Result [facility] [address] [place] [phone] * FL Fluoro Guided Injection Hip Left (03/03/2024 10:43 AM CAR CUSTOMIZER) Anatomical Region Laterality Modality Hip Left Computed Radiogr aphy, Computed Radiography 03/03/2024 10:5 9 AM CAR CUSTOMIZER Narrative 03/03/2024 11:00 AM CAR CUSTOMIZER EXAM DESCRIPTION: FL FLUORO GUIDED INJECTION HIP LEFT REASON FOR STUDY: pain Pt states hip pain for 6 months COMPARISON: Left hip radiographs 08/30/2023 RADIATION DOSE: Dose: 158.44 uGym2 Dose Area Product (DAP) PROCEDURE: Risk, benefits, and alternatives of the procedure were explained to the patient and informed consent was obtained. The area was prepped and draped in the usual sterile fashion. Local anesthesia was provided by 0.25 percent bupivacaine. A 22 gauge spinal needle was directed into the left hip joint space under fluoroscopic guidance, and a small amount of air was injected to confirm intra-articular placement. 40 mg triamcinolone and 2 mL 0.25% bupivacaine were injected without complication. IMPRESSION: Successful left hip steroid injection. THIS IS AN ELECTRONICALLY VERIFIED FINAL REPORT 03/03/2024 11:00 AM - Electronically signed by Brant Quinonez M.D. JR: Report ID: [id number] Reading Location: [id number] Procedure Note Brant Quinonez MD - 03/03/2024 EXAM DESCRIPTION: FL FLUORO GUIDED INJECTION HIP LEFT REASON FOR STUDY: pain Pt states hip pain for 6 months COMPARISON: Left hip radiographs 08/30/2023 RADIATION DOSE: Dose: 158.44 uGym2 Dose Area Product (DAP) PROCEDURE: Risk, benefits, and alternatives of the procedure wereexplained to the patient and informed consent was obtained. The area was prepped and draped in the usual sterile fashion. Local anesthesia was provided by 0.25 percent bupivacaine. A 22 gauge spinal needle was directed into the lefthip joint space under fluoroscopic guidance, and a small amount of air was injected to confirm intra-articular placement. 40 mg triamcinolone and2 mL 0.25% bupivacaine were injected without complication. IMPRESSION: Successful left hip steroid injection. THIS IS AN ELECTRONICALLY VERIFIED FINAL REPORT 03/03/2024 11:00 AM - Electronically signed by Brant Quinonez M.D. JR: Report ID: [id number] Reading Location: [place] [address] Dilan Laureano MD IMG FLUOROSCOPY PROCEDU RES Final Result * DIABETES EYE EXAM (01/24/2021) SCRIBED DIABETIC DILATED EYE EXAM Normal Historical Provider HEALTH MAINTENANCE Final Result from Last 3 Months or Most Recently Relevant to Health Maintenance Insurance [employer] OPEN ACCESS [employer] Care Teams Certified Registered Dental Assistant Relationship Specialty Start Date End Date Dilan Cast Jr., MD [address] [place] [phone] PCP - General Internal Medicine 02/09/22
--- OUTSIDE RECORDS SUMMARY | 2024-05-21 16:11 | XMS_ITS | Patient Health Summary ---
Author Organization [facility] reQall Address [address] [place] [address] Care Team Providers Care Digital Strategy Director Name Role Phone Serene Ward MD, Dilan Edwards Primary Care Provider Note from [facility],non-owned Affiliates and Associated Physician Practices is amultiple site organization consisting of ambulatory clinics and hospital sitesin [place], [place], [place] and [place]. This disclosure is being madepursuant to the Care Everywhere program and may not contain all information available regarding this patient. Last updated 18.[facility] reQall Allergies No known active allergies Medications * Be aware that medications may not be up to date on this document. Alwaysverify current medications with the patient. * buPROPion XL 24hr (Wellbutrin-XL) 300 MG tablet(Started 02/21/2023) Take 1 (one) tablet by mouth every morning * ibuprofen (Motrin) 200 MG tablet Take by mouth every 6 hours as needed * diclofenac sodium (Voltaren) 1 % gel Apply to affected area 4 times daily * celecoxib (CeleBREX) 200 MG capsule(Started 05/15/2023) Take 1 (one) capsule by mouth 2 times daily 5 refills by 05/14/2024 Active Problems Problem Noted Date Diagnosed Date [...] 156.5 kg (345 lb) 05/15/2023 1:30 PM SENIOR CARE MANAGER Height 182.9 cm (6') 05/15/2023 1:30 PM SENIOR CARE MANAGER Body Mass Index 46.79 05/15/2023 1:30 PM SENIOR CARE MANAGER Procedures * XR KNEE BILAT 3VW(Performed 05/15/2023) Performed for Pain in both knees, unspecified chronicity * DERMATOPATHOLOGY(Performed 02/19/2020) Results * XR KNEE BILAT 3VW (05/15/2023 1:35 PM SENIOR CARE MANAGER) Narrative [facility] [address] - 05/15/2023 1:35 PM SENIOR CARE MANAGER Please see progress note in Epic for results. Shan Zavala MD DIAGNOSTIC IMAGING O RDERABLES [facility] [address] * DERMATOPATHOLOGY (02/19/2020 12:00 AM SENIOR CARE MANAGER) Case Report Dermatopathology Report Case: [id number] Authorizing Provider: Sabas Rogers MD Collected: 02/19/2020 12:00 AM Ordering Location: [facility] Lab Received: 02/20/2020 06:34 AM Pathologist: Kathya Lakhani MD Specimen: Skin, right post thigh 0 12:33 PM SENIOR CARE MANAGER DERMATOPATHOLOGY LABORATORY Final Diagnosis Specimen A. SKIN, right post thigh: NEVUS LIPOMATOSUS SUPERFICIALIS (D17.30) 0 12:33 PM SENIOR CARE MANAGER DERMATOPATHOLOGY LABORATORY Clinical History Nevus vs tag. Path # [id number]. 0 12:33 PM SENIOR CARE MANAGER DERMATOPATHOLOGY LABORATORY Gross Description Specimen A: Received is one formalin filled container labeled with the patient's name and designated right post thigh. The specimen consists of a shave biopsy (2 pieces) measuring [id number], bisected, & [id number]. Jar 0. 0 12:33 PM SENIOR CARE MANAGER DERMATOPATHOLOGY LABORATORY Microscopic Description Specimen A. SKIN, right post thigh: There is a gently folded epidermis surrounding a connective tissue core in which fat and collagen are intermingled. 0 12:33 PM [facility] DERMATOPATHOLOGY LABORATORY Disclaimer An external and internal positive and negative controls are appropriate for the histochemical, immunohistochemical and immunofluorescence stain(s) in this case (if any), except where stated explicitly. The performance characteristics of the stain(s) cited in this report were developed and its performance characteristic determined by the Dermatopathology Laboratory at [facility], directed by Dr. Sariah Wise. These tests need not be, and therefore are not, approved by the [place] Food and Drug Administration. The tests are used for clinical purposes. Billing Codes Specimen Charges Stain Charges 16197 1 0 12:33 PM SENIOR CARE MANAGER DERMATOPATHOLOGY LABORATORY Embedded Images 0 12:33 PM SENIOR CARE MANAGER DERMATOPATHOLOGY LABORATORY Pathology/Cytolog y TISSUE SPECIMEN FROM SKIN / Unknown 02/19/2020 02/20/2020 6:34 AM SENIOR CARE MANAGER Sabas Rogers MD LAB - PATHOLOGY/CYTO LOGY ORDER[facility]LES DERMATOPATHOLOGY LABORATORY [facility] Department of Dermatology [facility] [address] [place] [address], [address] [phone] Care Teams Digital Strategy Director Relationship Specialty Start Date End Date Dilan Cast Jr., MD [address] [place] [id number] PCP - General Internal Medicine 05/15/23
--- OUTSIDE RECORDS SUMMARY | 2024-05-21 16:11 | XMS_ITS | Referral Summary ---
Author Organization [facility] Address [address] [facility] [place] [address] Care Team Providers Care Hand Almond Blancher Name Role Phone Serene Ward MD, Dilan Edwards Primary Care Provider Source Comments [facility],non-owned Affiliates and Associated Physician Practices is amultiple site organization consisting of ambulatory clinics and hospital sitesin [place], [place], [place] and [place]. This disclosure is being madepursuant to the Care Everywhere program and may not contain all information available regarding this patient. Last updated 18.[facility] Allergies No known active allergies Medications * [...] 156.5 kg (345 lb) 05/15/2023 1:30 PM FIREBOAT OPERATOR Height 182.9 cm (6') 05/15/2023 1:30 PM FIREBOAT OPERATOR Body Mass Index 46.79 05/15/2023 1:30 PM FIREBOAT OPERATOR Plan of Treatment Not on file Care Teams Hand Almond Blancher Relationship Specialty Start Date End Date Dilan Cast Jr., MD [address] [place] [phone] PCP - General Internal Medicine 05/15/23
--- OUTSIDE RECORDS SUMMARY | 2024-05-21 16:11 | XMS_ITS | Referral Summary ---
Author Organization [facility] [address] [place] [phone] Care Team Providers Care Geospatial Program Management Officer Name Role Phone Serene Ward MD, Dilan Swift Primary Care Provide r Encounters Date Type Department Care Team Description 03/05/2024 Telephone [facility] [address] [place] [phone] Dilan Cast Jr., MD Prescription Error 03/05/2024 8:30 AM ADVERTISING SALES ASSISTANT Office Visit [facility] [address] [place] [phone] Dilan Cast Jr., MD Preventative health care (Primary Dx); Need for vaccination; Type 2 diabetes mellitus with hyperglycemia, without long-term current use of insulin (HCC); Class 3 severe obesity due to excess calories without serious comorbidity with body mass index (BMI) of 45.0 to 49.9 in adult (HCC); Encounter for screening colonoscopy; Generalized anxiety disorder 03/03/2024 9:33 AM ADVERTISING SALES ASSISTANT - 03/03/2024 11:59 PM ADVERTISING SALES ASSISTANT Hospital Encounter [facility] [address] [place] [address] Dilan Laureano MD Chronic left hip pain Discharge Disposition: Discharge to home or self care 02/27/2024 Orders Only [facility] [address] [place] [phone] Dilan Laureano MD Chronic left hip pain (Primary Dx) 02/26/2024 Telephone [facility] [facility] [address] [place] [phone] Dilan Laureano MD 02/20/2024 10:00 AM ADVERTISING SALES ASSISTANT Office Visit [facility] [address] [facility] [address] [place] [phone] Dilan Laureano MD Left hip pain (Primary Dx); Chronic left hip pain; 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 3 each 03/05/20 24 Active blood-glucose meter ([employer]) miscIndications:T ype 2 diabetes mellitus with hyperglycemia, without long-term current use of insulin ([facility]) Test daily before all meals/snacks and once [...] 03/05/2024 Assessment & Plan (03/05/2024 8:57 AM ADVERTISING SALES ASSISTANT): New dx, will start mounjaro with weight and hgba1c Will start statin and benicar Will get urine test at next visit Preventative health care 02/09/2022 Assessment & Plan (03/05/2024 8:51 AM ADVERTISING SALES ASSISTANT): Reviewed labs, screenings and vaccines Assessment & Plan (02/21/2023 8:44 AM ADVERTISING SALES ASSISTANT): Reviewed labs, screenings and vaccines Assessment & Plan (02/09/2022 3:29 PM CDT): Well get labs Up to date on vaccines Will get colonoscopy this year Lymphadenopathy 12/06/2020 Assessment & Plan (12/06/2020 3:32 PM CDT): Suspect from TDAP vaccine Should resolve in the next week Will let us know if it does not improve Generalized anxiety disorder 11/18/2020 Assessment & Plan (03/05/2024 8:44 AM ADVERTISING SALES ASSISTANT): Chronic stable Well controlled Continue current prescribed medications wellbutrin at current dose Assessment & Plan (02/21/2023 8:43 AM ADVERTISING SALES ASSISTANT): Chronic stable Well controlled Continue current prescribed [...] 11/18/2020 Assessment & Plan (03/05/2024 8:55 AM ADVERTISING SALES ASSISTANT): Monitor weight, trying to start mounjaro for dm2 Assessment & Plan (08/30/2023 1:52 PM CDT): Monitor weight Assessment & Plan (02/21/2023 8:43 AM ADVERTISING SALES ASSISTANT): Has lost weight via diet changes Assessment & Plan (08/09/2022 10:21 AM CDT): Monitor weight Assessment & Plan (02/09/2022 3:28 PM CDT): Monitor weight Assessment & Plan (11/18/2020 10:29 AM CDT): 315 is lowest weight hes been in the last few years Discussed laura- something to consider Major depressive disorder Overview [...] work Assessment & Plan (05/24/2021 1:50 PM ADVERTISING SALES ASSISTANT): More the issue now, very work related [...] 11/2 Assessment & Plan (05/24/2021 1:51 PM ADVERTISING SALES ASSISTANT): Declines meds again, will work on diet [...] at his 2 week message to me Immunizations Name Administration Dates Next Due Influenza, Quadrivalent, Spl it, Preservative Free, Intramuscular 02/21/2023,02/09/2022,01/19/2021 Influenza, Trivalent, Preser vative Free, Intramuscular 03/05/2024 Td, Unspecified 11/18/2020(Deferred: Patient Ref used) Tdap 12/02/2020 Social History Tobacco Use Types Packs/Day Years [...] Orientation Straight 11/15/2020 2: 32 PM CDT Last Filed Vital Signs Vital Sign Reading Time Taken Comments Blood Pressure 122/74 03/05/2024 8:28 AM ADVERTISING SALES ASSISTANT Pulse 83 03/05/2024 8:28 AM ADVERTISING SALES ASSISTANT Temperature 36.6 C (97.9 F) 03/05/2024 8:28 AM ADVERTISING SALES ASSISTANT Respiratory Rate 18 03/05/2024 8:28 AM ADVERTISING SALES ASSISTANT Oxygen Saturation 97% 03/05/2024 8:28 AM ADVERTISING SALES ASSISTANT Inhaled Oxygen Concentration - - Weight 161.5 kg (356 lb) 03/05/2024 8:28 AM ADVERTISING SALES ASSISTANT Height 182.9 cm (6') 03/05/2024 8:28 AM ADVERTISING SALES ASSISTANT Body Mass Index 48.28 03/05/2024 8:28 AM ADVERTISING SALES ASSISTANT Plan of Treatment Not on file Procedures Procedure Name Priority Date/Time Associated Diagnosis Comments HEMOGLOBIN A1C Routine 03/04/2024 9:01 AM ADVERTISING SALES ASSISTANT Class 3 severe obesity due to excess calories without serious comorbidity with body mass index (BMI) of 45.0 to 49.9 in adult (HCC) Elevated hemoglobin A1c Preventative health care PSA SCREEN Routine 03/04/2024 9:01 AM ADVERTISING SALES ASSISTANT Class 3 severe obesity due to excess calories without serious comorbidity with body mass index (BMI) of 45.0 to 49.9 in adult (HCC) Elevated hemoglobin A1c Preventative health care LIPID PANEL Routine 03/04/2024 9:01 AM ADVERTISING SALES ASSISTANT Class 3 severe obesity due to excess calories without serious comorbidity with body mass index (BMI) of 45.0 to 49.9 in adult (HCC) Elevated hemoglobin A1c Preventative health care CBC WITH AUTO DIFFERENTIAL Routine 03/04/2024 9:01 AM ADVERTISING SALES ASSISTANT Class 3 severe obesity due to excess calories without serious comorbidity with body mass index (BMI) of 45.0 to 49.9 in adult (HCC) Elevated hemoglobin A1c Preventative health care COMPREHENSIVE METABOLIC PANEL Routine 03/04/2024 9:01 AM ADVERTISING SALES ASSISTANT Class 3 severe obesity due to excess calories without serious comorbidity with body mass index (BMI) of 45.0 to 49.9 in adult (HCC) Elevated hemoglobin A1c Preventative health care FL FLUORO GUIDED INJECTION HIP LEFT Schedule Routine, Read Routine (OP Routine) 03/03/2024 10:43 AM ADVERTISING SALES ASSISTANT Chronic left hip pain DIABETES EYE EXAM Routine 01/24/2021 from Last 3 Months or Most Recently Relevant to Health Maintenance Results * PSA screen (03/04/2024 9:01 AM ADVERTISING SALES ASSISTANT) PSA 0.67 < OR = 4.00 ng/mL [facility] Comment: The total PSA value from this assay system is standardized against the WHO standard. The test result will be approximately 20% lower when compared to the equimolar-standardized total PSA (Aaron Aishwarya). Comparison of serial PSA results should be interpreted with this fact in mind. This test was performed using the Siemens chemiluminescent method. Values obtained from different assay methods cannot be used interchangeably. PSA levels, regardless of value, should not be interpreted as absolute evidence of the presence or absence of disease. Blood 03/04/2024 9:01 AM ADVERTISING SALES ASSISTANT 03/04/2024 9:02 AM ADVERTISING SALES ASSISTANT Narrative [facility] - 03/05/2024 2:51 AM ADVERTISING SALES ASSISTANT FASTING:YES FASTING: YES us Dilan Cast Jr., MD LAB BLOOD ORDERABLES Final Result [facility] [address] [place] [address] * (ABNORMAL) CBC with auto differential (03/04/2024 9:01 AM ADVERTISING SALES ASSISTANT) WBC 15.3(H) 3.8 - 10.8 Thousand/ uL [...] [facility] Blood 03/04/2024 9:01 AM ADVERTISING SALES ASSISTANT 03/04/2024 9:02 AM ADVERTISING SALES ASSISTANT Narrative [facility] - 03/05/2024 2:51 AM ADVERTISING SALES ASSISTANT FASTING:YES FASTING: YES Dilan Cast Jr., MD LAB BLOOD ORDERABLES Final Result [facility] [address] [place] [address] * (ABNORMAL) Hemoglobin A1c (03/04/2024 9:01 AM ADVERTISING SALES ASSISTANT) Hgb A1C 6.6(H) <5.7 % of total [...] diabetes for children. Blood 03/04/2024 9:01 AM ADVERTISING SALES ASSISTANT 03/04/2024 9:02 AM ADVERTISING SALES ASSISTANT Narrative [facility] - 03/05/2024 2:51 AM ADVERTISING SALES ASSISTANT FASTING:YES FASTING: YES Dilan Cast Jr., MD LAB BLOOD ORDERABLES Final Result [facility] [address] [place] [id number] * Lipid panel (03/04/2024 9:01 AM ADVERTISING SALES ASSISTANT) Cholesterol 156 <200 mg/dL [facility] [...] factors. LDL-C is now calculated using the Ivy calculation, which is a validated novel method providing better accuracy than the Friedewald equation in the estimation of LDL-C. Chalo SS et al. TITUS. 2013;310(19): 6854-3178 (http://education.Dianwoba/faq/UXU128) Chol/HDL ratio 3.5 <5.0 (calc) [facility] Non-HDL, (LDL+VLDL) 112 <130 mg/dL (calc) [facility] Comment: For patients with diabetes plus 1 major ASCVD risk factor, treating to a non-HDL-C goal of <100 mg/dL (LDL-C of <70 mg/dL) is considered a therapeutic option. Blood 03/04/2024 9:01 AM ADVERTISING SALES ASSISTANT 03/04/2024 9:02 AM ADVERTISING SALES ASSISTANT Narrative [facility] - 03/05/2024 2:51 AM ADVERTISING SALES ASSISTANT FASTING:YES FASTING: YES Dilan Cast Jr., MD LAB BLOOD ORDERABLES Final Result [facility] [address] [place] [phone] * (ABNORMAL) Comprehensive metabolic panel (03/04/2024 9:01 AM ADVERTISING SALES ASSISTANT) Glucose 134(H) 65 - 99 mg/dL [facility] [...] [facility] Blood 03/04/2024 9:01 AM ADVERTISING SALES ASSISTANT 03/04/2024 9:02 AM ADVERTISING SALES ASSISTANT Narrative [facility] - 03/05/2024 2:51 AM ADVERTISING SALES ASSISTANT FASTING:YES FASTING: YES Dilan Cast Jr., MD LAB BLOOD ORDERABLES Final Result [facility] [address] [address] [facility] [place] [phone] * FL Fluoro Guided Injection Hip Left (03/03/2024 10:43 AM ADVERTISING SALES ASSISTANT) Anatomical Region Laterality Modality Hip Left Computed Radiogr aphy, Computed Radiography 03/03/2024 10:5 9 AM ADVERTISING SALES ASSISTANT Narrative 03/03/2024 11:00 AM ADVERTISING SALES ASSISTANT EXAM DESCRIPTION: FL FLUORO GUIDED INJECTION HIP [...] by Brant Quinonez M.D. JR: Report ID: [id number] Reading Location: [id number] Procedure Note Brant Quinonez MD - 03/03/2024 [...] by Brant Quinonez M.D. JR: Report ID: [id number] Reading Location: [id number] Dilan Laureano MD IMG FLUOROSCOPY PROCEDU RES Final Result * DIABETES EYE EXAM (01/24/2021) SCRIBED DIABETIC DILATED EYE EXAM Normal Historical Provider HEALTH MAINTENANCE Final Result from Last 3 Months or Most Recently Relevant to Health Maintenance Insurance [employer] OPEN ACCESS [employer] OPEN ACCESS Care Teams Geospatial Program Management Officer Relationship Specialty Start Date End Date Dilan Cast Jr., MD [address] [place] [phone] PCP - General Internal Medicine 02/09/22
--- NOTE | 2024-05-21 16:16 | ED_ITS ---
HPI - URI/Sore Throat General Chief Complaint: Upper Respiratory Infection Stated Complaint: sore throat Time Seen by Provider: 05/21/24 16:16 Source: patient and RN notes reviewed Mode of arrival: ambulatory Limitations: no limitations History of Present Illness HPI Narrative: 54-year-old male with history of hypertension presented for complaint of sore throat, body aches, sinus pressure/congestion, cough, fever/chills. Onset 2 days. Endorses exposure to COVID daughter. Denies sob, wheezing, n/v/d. Took Tylenol. MD elicited complaint: cough Related Data Home Medications ?Medication ?Instructions ?Recorded ?Confirmed ?Last Taken ?Type bupropion HCl (smoking deter) 150 150 mg PO BID 11/23/21 11/23/21 Unknown His tory mg tablet,12 hr sustained-release(smoking deterrent) celecoxib 100 mg capsule mg 05/21/24 Unknown History Allergies Allergy/AdvReac Type Severity Reaction Status Date / Time benzonatate (From Tessalon AdvReac Mild Other Verified 05/21/24 16:20 Ailyn) Review of Systems Review of Systems: CONSTITUTIONAL: Endorses malaise, chills, sweats, fever EYES: Denies visual changes, redness, or discharge ENT: Reports rhinorrhea, congestion, sinus pain, otalgia, sore throat CARDIOVASCULAR: Denies chest pain, palpitations, edema RESPIRATORY: Reports cough, post nasal drainage. Denies dyspnea GASTROINTESTINAL: Denies abdominal pain, nausea, vomiting, diarrhea MUSCULOSKELETAL: Endorses myalgia NEUROLOGIC: Denies headache PMFSH Past Medical History Medical History Hypertension Anxiety Depression Surgical History Surgical History Fracture of mandible, jaw angle lon-[id number] mandible 1989 Family History Family History Father Hypertension Family history of alcoholism Mother Family history of malignant neoplasm of breast Family history of thyroid disease Family history of malignant neoplasm of breast in first degree relative Hypertension Grandparent Family history of alcoholism Social History Social History Smoking status: Never smoker Second hand tobacco smoke exposure: No Alcohol intake: never Drinks per week: 0 Alcohol use details: beer Substance use: never Substance use type: does not use Living arrangements: with family Occupation/Education: occupation 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 EYES: PERRLA, conjunctivae clear ENT: Mucous membranes moist. TM pearly perales with dull light reflex bilaterally; no tragal tenderness. Oropharynx not erythematous without lesions or exudate, no drooling, no hoarseness, no trismus, uvula midline. No tripod positioning, muffled voice, soft palate or pharyngeal wall bulging NECK: Supple. No lymphadenopathy CHEST: Clear to auscultation, breath sounds equal. No wheezing, rhonchi, rales, or stridor. No respiratory distress, speaks in full sentences. HEART: Regular rate and rhythm. No murmur heard. SKIN: Warm, dry, no rash. NEURO: Alert and oriented x3. PSYCH: Normal mood and affect Course Course Emergency Course: Patient is aware of diagnosis, understands and agrees to treatment plan. Anticipatory guidance given. Patient agrees to follow-up as directed and is aware of reasons to seek care at the emergency department. Portions of this record may have been created with voice recognition software Level of Care: Express Care Visit Vital Signs Vital signs: Vital Signs Temperature 98.1 F 05/21/24 16:23 Pulse Rate 92 05/21/24 16:23 Respiratory Rate 18 05/21/24 16:23 Blood Pressure 124/80 05/21/24 16:23 Pulse Oximetry 98 05/21/24 16:23 Oxygen Delivery Room Air 05/21/24 16:23 Temperature 98.1 F 05/21/24 16:23 Pulse Rate 92 05/21/24 16:23 Respiratory Rate 18 05/21/24 16:23 Blood Pressure 124/80 05/21/24 16:23 Pulse Oximetry 98 05/21/24 16:23 Oxygen Delivery Room Air 05/21/24 16:23 reviewed MDM - URI/Sore Throat MDM Narrative Medical decision making narrative: POS covid. Discussed physical exam findings. Advised supportive measures and signs/symptoms to go to the ER. Pt is appropriate for outpt treatment and f/u. Differential Diagnosis Differential diagnosis: Likely upper respiratory infection, sinusitis and viral infection Discharge Plan Discharge Clinical Impression: COVID-19 Patient Disposition: Home, Self-Care Condition: Stable Instructions: COVID-19 (Coronavirus Disease 2019) (ED) Additional Instructions: Your rapid COVID test was positive today. The following updated recommendations have been made by the CDC and local Health Departments, regarding COVID-19: - When people get sick with a respiratory virus, they stay home and away from others. - Return to normal activities when, for at least 24 hours, symptoms are improving overall, and if a fever was present, it has been gone without use of a fever-reducing medication. - Once people resume normal activities, they are encouraged to take additional prevention strategies for the next 5 days to curb disease spread, such as taking more steps for machine cleaner air, enhancing hygiene practices, wearing a well-fitting mask, keeping a distance from others, and/or getting tested for respiratory viruses. - Enhanced precautions are especially important to protect those most at risk for severe illness, including those over 65 and people with weakened immune systems. Rest, stay hydrated. Tylenol and ibuprofen every 8 hours as needed Flonase/nasal spray, Zyrtec, cough syrup cold/flu medications for symptoms as needed Follow up with your primary care provider, call to schedule an appointment. Go to the ER for worsening symptoms or concerns. Patient Language: Georgian Prescriptions: No Action bupropion HCl (smoking deter) 150 mg tablet extended release 12 hr 150 mg PO BID celecoxib 100 mg capsule Follow-up/Referrals: Serene,Dilan Swift Jr., MD [Primary Care Provider] -
[2024-05-21 16:23] VITALS: BP 124/80; PULSE 92; RESP 18; TEMP 36.7; O2SAT 98
[2024-05-21 16:40] LABS: EDCOVIDSCREEN Positive (Negative); EDINFLUASCREEN Negative (Negative); EDINFLUBSCREEN Negative (Negative)
== END 2024-05-21 16:40 | disposition home or self-care (01) ==
PROVIDERS: Emergency Provider Nurse Practitioner Family; PCP Hospitalist
DX: U07.1 COVID-19 (principal); I10 Essential (primary) hypertension; Z20.822 Contact with and (suspected) exposure to COVID-19
CPT/HCPCS: 87426; 87804; 99212; G0463